=== PATIENT | male | born 1960 | race Caucasian/White ===

== ENCOUNTER 2021-08-22 06:08 | Day surgery (SDC) | payer BC, OTHER, SELFPAY ==
[2021-08-19 12:30] VITALS: BMI 27.6
[2021-08-22 06:26] VITALS: BP 148/91; PULSE 75; RESP 18; TEMP 36.1; O2SAT 98
--- NOTE | 2021-08-22 06:39 | P.HP_ITS ---
Same Day Surgery H&P Indication for Procedure/HPI DATE OF PROCEDURE: August 22, 2021 CHIEF COMPLAINT/INDICATIONFOR SURGICAL PROCEDURE: History of colon polyps PREOP DIAGNOSIS: Screening colonoscopy PLANNED PROCEDURE: Operation Date: 08/22/21 07:30 Proposed Procedures p Colonoscopy 16958(Not Applicable) - Stanislaw Rivero MD 06/24/2021 This is a pleasant 61 years old gentleman presents to my practice with history of polyp removed about 10 years ago and a repeat colonoscopy 5 years ago was within normal limits.? Patient comes today denies bleeding per rectum or nonintentional weight loss or history of colon cancer. 08/22/2021 Patient comes today for repeat colonoscopy ROS All systems have been reviewed negative except as for the above or per problem list. Medications/Allergies* Home Medications Medication Instructions Recorded Confirmed Type lisinopril 20 mg tablet 20 mg PO DAILY 06/24/21 08/19/21 History omeprazole 20 mg capsule,delayed 20 mg PO DAILY 06/24/21 08/19/21 History release amlodipine 2.5 mg tablet 2.5 mg PO DAILY 08/19/21 08/19/21 History metoprolol succinate 100 mg 100 mg PO DAILY 08/19/21 08/19/21 History tablet,extended release 24 hr jbiqosxh-qzrybyqy-pzdls acid 400 1 tab PO DAILY 08/19/21 08/19/21 History mcg-vit K 20 mcg-lycop 300 mcg tablet (Men's Multivitamin) Allergies/Adverse Reactions Allergy/AdvReac Type Severity Reaction Status Date / Time No Known Allergies Allergy Verified 08/22/21 06:41 Pertinent History/Comorbid Conditions* Social History Smoking and tobacco status: never smoked Second hand smoke exposure: No Alcohol intake: never Pertinent Exam Findings alert, oriented x 3, regular rate & rhythm and procedure specific exam findings (Abdominal examination nontender nondistended soft) Recommendations Surgery/Procedure today (Colonoscopy with possible biopsy and possible polypectomy) Coding Level of Care Code Acute Equipment Man for Delicia Walter
--- NOTE | 2021-08-22 06:43 | P.ANESASSM_ITS ---
Documented by User: Pily More CRNA 08/22/21 07:20 Pre-Anesthetic Assessment Height/Weight: Height 1.88 m Weight 97.522 kg Temp Pulse Resp BP Pulse Ox 97 F L 75 18 148/91 98 08/22/21 06:26 08/22/21 06:26 08/22/21 06:26 08/22/21 06:26 08/22/21 06:26 Preop Diagnosis: Screening colonoscopy Operation Date: 08/22/21 07:30 Proposed Procedures p Colonoscopy 62991(Not Applicable) - Stanislaw Rivero MD Familial anesthetic complications: none Was Beta Kim taken within 24 hours: N/A Was Clonidine taken within 24 hours: N/A Last intake: Intake Last Liquid Date 08/21/21 Last Liquid Time 20:00 Last Solid Date 08/20/21 Last Solid Time 17:30 Social No alcohol and No tobacco Exam alert and oriented x 3 Airway Submandibular: within normal limits Cervical ROM: within normal limits Dentition: full History/ROS No significant history except as noted CV/HEM Hypertension None reported Hepatic None reported GI None reported Metabolic None reported Musc/skel None reported Neuropsych None reported Anesthetic Plan ASA status: 2 Anesthesia: Anesthesia Evaluation and MAC Risk of > 500 ml blood loss (7ml/kg in children): No Medications/Allergies Home Medications Medication Instructions Recorded Confirmed Last Taken Type lisinopril 20 mg tablet 20 mg PO DAILY 06/24/21 08/19/21 08/21/21 History omeprazole 20 mg capsule,delayed 20 mg PO DAILY 06/24/21 08/19/21 08/21/21 History release amlodipine 2.5 mg tablet 2.5 mg PO DAILY 08/19/21 08/19/21 08/22/21 05:30 History metoprolol succinate 100 mg 100 mg PO DAILY 08/19/21 08/19/21 08/22/21 05:30 History tablet,extended release 24 hr zduoikfo-osigdewn-nxojl acid 400 1 tab PO DAILY 08/19/21 08/19/21 08/21/21 History mcg-vit K 20 mcg-lycop 300 mcg tablet (Men's Multivitamin) Allergies Allergy/AdvReac Type Severity Reaction Status Date / Time No Known Allergies Allergy Verified 08/22/21 06:41 [facility] Anesthesia Social History Smoking and tobacco status: never smoked Second hand smoke exposure: No Alcohol intake: never Data Anesthesia Cardiac Studies: No Data to Display
[2021-08-22] MEDS: sodium chloride 0.9% 1,000 ML 30 ML IV (06:44)
--- NOTE | 2021-08-22 07:43 | ANE.PACU2 ---
Documented by User: Pily More CRNA 08/22/21 07:43 Inpatient post-anesthesia follow up: Airway intact: Yes Vital signs: Temperature 97 F Pulse Rate 75 Respiratory Rate 18 Blood Pressure 148/91 Pulse Oximetry 98 Oxygen Delivery Me thod Room Air Oxygen Flow Rate Fraction of Inspir ed Oxygen Hydration adequate: Yes Nausea and vomiting: No Pain level: 1 Mental status: Baseline
[2021-08-22 07:46] VITALS: BP 125/70; PULSE 51; RESP 16; TEMP 36.3; O2SAT 96
[2021-08-22 07:54] VITALS: BP 131/82; PULSE 50; RESP 16; O2SAT 98
[2021-08-22 08:00] VITALS: BP 140/87; PULSE 52; RESP 16; O2SAT 98
== END 2021-08-22 08:18 | disposition home or self-care (01) ==
PROVIDERS: PCP Family Medicine; Visit Provider Surgery
PROC: 0DJD8ZZ Inspection of Lower Intestinal Tract, Via Natural or Artificial Opening Endoscopic (ICD-10-PCS; CPT 45378; principal; 2021-08-22 07:30)
DX: Z12.11 Encounter for screening for malignant neoplasm of colon (principal); Z86.010 Personal history of colon polyps; K57.30 Diverticulosis of large intestine without perforation or abscess without bleeding; I10 Essential (primary) hypertension
CPT/HCPCS: 45378; J2704; J7030